=== PATIENT | female | born 1945 | race Two or more races ===

== ENCOUNTER 2018-11-13 12:53 | Inpatient (IN) | payer BC, MEDICARE ==
[2018-11-13] MEDS ORDERED: oxyCODONE/Acetamin 5/325 MG* TAB PO ONE (13:11)
[2018-11-13] MEDS ORDERED: Diazepam SYRINGE* 5 MG/ML 2 ML SYRINGE (10 MG total) IV ONE ×2 (14:01→16:07)
[2018-11-13] MEDS ORDERED: Labetalol IV* 5 MG/ML 20 ML VIAL IV PUSH ONE (14:01)
[2018-11-13] MEDS ORDERED: Ketorolac INJ* 30 MG/ML 1 ML VIAL IV PUSH ONE (14:02)
[2018-11-13] MEDS ORDERED: Diazepam INJ (NF) 5 MG/ML 10 ML VIAL (50 MG TOTAL) IV ONE (15:00)
--- NOTE | 2018-11-13 17:15 | HP ---
H&P (Free Text) History and Physical: History and Physical Provider: Dr. 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 She states that she was at [employer] today ant 1130 and slipped and fell on her ankle. She states it was inverted. She was unable to stand and EMS had to carry her out. She states that her last meal was at 730 this am. She states that moving her ankle worsens the pain and that not moving it decreases the pain. She does not currently have any numbness but states that she does have deformity of her ankle. PMH: 1. HTN 2. Hypothyroidism 3. Herniated disc L2 - L3 MEDICATIONS: 1. Levothyroxin ALLERGIES: Allergies Allergy/AdvReac Type Severity Reaction Status Date / Time Sulfa (Sulfonamide Allergy Rash Verified 11/13/18 13:34 Antibiotics) PSH: 1. 2. Hysterectomy SOCIAL HISTORY: Pt denies any smoking or drinking. No illicit drug use. Admits to occasional drinking. ROS: * General: Denies fevers, chills or night sweats. No known anesthesia problems. * HEENT: denies YANES, lightheadedness or syncopal episodes * Cardiothoracic: Negative for chest pain, heart palpitations, or edema * Pulmonary: Negative for SOB with exertion, chronic cough, COPD or asthma * GI: denies N/V/D/C or GERD * : Negative for nocturia, urinary frequency, urinary urgency, history of UTI s or kidney problems * Musculoskeletal: negative for chronic or intermittent back pain or fractures * Neuro: Denies paresthesias, numbness, seizure, stroke, epilepsy, depression or anxiety * Integumentary: No abrasions, lesions, rashes, lumps or open sores * Endocrine: Negative for diabetes or thyroid issues * Hematology: negative for easy bruising, anemia, excessive bleeding, or DVT. PHYSICAL EXAM: * Vitals: * General: Alert & oriented, year old in no acute distress. Appropriate mood and affect * HEENT: Normocephalic, atraumatic, hearing and vision grossly intact * Cardio: regular rate and rhythm, S1 S2, no murmurs appreciated, no edema * Pulmonary: Lungs clear to auscultation bilaterally, no wheezes, rales or rhonchi * Musculoskeletal/Neurologic: Deformity of the left ankle is apparent. Moderate swelling and ecchymosis is present. There is TTP to light touch at this point. Skin does wrinkle somewhat. Imaging: Xrays of the left ankle were obtained and reviewed. Unstable trimalleolar fracture dislocation at the talocrural joint. Gómez type B 3 fracture pattern. IMPRESSION: Left ankle trimalleolar fracture PLAN: <Glynn Hillman - Last Filed: 11/13/18 17:16> History and Physical: Patient has a left ankle trimalleolar fracture dislocation. Patient presented to ED. Initially patient considered going to [facility] as she lives close to that hospital and knows doctors there. [facility]. ED staff tried 1 relocation/reduction. Unsuccessful. Patient decided to stay at [facility]. With a ankle block and IV Morphine, I attempted relocation and splinting. Post-reduction xrays showed persistent posterior dislocation. Given the patient's soft tissue swelling, I decided on external fixation rather than ORIF. I therefore her to the OR for a closed relocation and external fixation placement in the night of admission, on 11/13/18. <Hesham Hickey - Last Filed: 11/14/18 10:26>
--- NOTE | 2018-11-13 17:18 | ED ---
Lower Extremity - HPI Summary HPI Summary: 73-year-old female presents with left ankle injury today. States she was walking at [facility] and ended up rolling her ankle and felt a snap. She was unable to ambulate and it took ems an hour to find her. She denies any numbness or tingling. No previous fracture to the area. Has history of htn. States pain medication makes her high blood pressure very high. She is from [place]. - History of Current Complaint Chief Complaint: EDExtremityLower Stated Complaint: LT ANKLE INJ PER EMS Time Seen by Provider: 11/13/18 13:10 Pain Intensity: 6 - Allergies/Home Medications Allergies/Adverse Reactions: Allergies Allergy/AdvReac Type Severity Reaction Status Date / Time Sulfa (Sulfonamide Allergy Rash Verified 11/13/18 13:34 Antibiotics) Home Medications: Home Medications Amlodipine 2.5 mg tab 2.5 mg PO DAILY 11/13/18 [History Confirmed 11/13/18] Carvedilol TAB* [Coreg TAB*] 25 mg PO DAILY 11/13/18 [History Confirmed 11/13/18 ] Hydrochlorothiazide TAB* [Hydrodiuril TAB*] 50 mg PO DAILY 11/13/18 [History Confirmed 11/13/18] Levothyroxine TAB* 88 mcg PO DAILY 11/13/18 [History Confirmed 11/13/18] Losartan Potassium 100 mg PO DAILY 11/13/18 [History Confirmed 11/13/18] PMH/Surg Hx/FS Hx/Imm Hx Endocrine/Hematology History: Denies: Hx Anticoagulant Therapy Cardiovascular History: Reports: Hx Hypertension Infectious Disease History: No Infectious Disease History: Denies: Traveled Outside the [place] in Last 30 Days - Family History Known Family History: Positive: Non-Contributory - Social History Alcohol Use: None Substance Use Type: Reports: None Smoking Status (MU): Never Smoked Tobacco Review of Systems Negative: Fever Negative: Chest Pain Negative: Shortness Of Breath Positive: Myalgia - left ankle pain All Other Systems Reviewed And Are Negative: Yes Physical Exam Triage Information Reviewed: Yes Vital Signs On Initial Exam: Initial Vitals Temp Pulse Resp BP Pulse Ox 97 F 61 18 205/102 100 11/13/18 12:58 11/13/18 12:58 11/13/18 12:58 11/13/18 12:58 11/13/18 12:58 Vital Signs Reviewed: Yes Appearance: Positive: Well-Appearing Skin: Positive: Warm, Dry Head/Face: Positive: Normal Head/Face Inspection Eyes: Positive: Normal, Conjunctiva Clear ENT: Positive: Pharynx normal Respiratory/Lung Sounds: Positive: Clear to Auscultation, Breath Sounds Present Cardiovascular: Positive: Normal, RRR Musculoskeletal: Positive: Limited @ - left ankle, Other - deformity to left ankle, good pulses, capillary refill<2 secs Neurological: Positive: Normal Psychiatric: Positive: Normal Diagnostics - Vital Signs Vital Signs Temp Pulse Resp BP Pulse Ox 11/13/18 16:10 16 11/13/18 13:33 16 11/13/18 12:58 97 F 61 18 205/102 100 - Laboratory Result Diagrams: 11/14/18 06:14 11/14/18 06:14 Lab Statement: Any lab studies that have been ordered have been reviewed, and results considered in the medical decision making process. - Radiology ankle Radiology Interpretation Completed By: Radiologist Summary of Radiographic Findings: #. Oblique fracture through the distal metaphysis of the fibula terminating inferiorly at. the level of the ankle mortise with one half bone width lateral and posterior. displacement. Mildly comminuted horizontal avulsion fracture at the medial malleolus. Coronal oriented fracture at the posterior malleolus of the tibial plafond with. approximate 1 cm predominant cephalad displacement with resulting significant articular. surface incongruity. Re-Evaluation - Re-Evaluation First Eval Comment: attempted reduction thought ankle was reduced Second Eval Comment: discussed with patient and is unsure if wants treatment here or not. wants to potential go to [facility]. Third Eval Re-Evaluation Time: 18:04 Comment: patient states wants to stay for surgery Lower Extremity Course/Dx - Course Course Of Treatment: 73-year-old female presents with left ankle injury today. States she was walking at [facility] and ended up rolling her ankle and felt a snap. She was unable to ambulate and it took ems an hour to find her. She denies any numbness or tingling. No previous fracture to the area. Has history of htn. States pain medication makes her high blood pressure very high. She is from [place]. On exam has deformity noted to left ankle. Neurovascular intact. X-ray shows trimalleolar fracture. gave labatelol for blood pressure. Attempted reduction and felt the area pop but when performed x- rays area still not reduced. Consultation with Dr. Hickey. patient states wants to be admitted for surgery. - Diagnoses Differential Diagnosis/HQI/PQRI: Positive: Dislocation, Fracture (Closed), Sprain Provider Diagnoses: Trimalleolar fracture of left ankle, Hypertension Discharge - Sign-Out/Discharge Documenting (check all that apply): Patient Departure Patient Received Moderate/Deep Sedation with Procedure: No - Discharge Plan Condition: Stable Disposition: ADMITTED TO [facility] - Billing Disposition and Condition Condition: STABLE Disposition: Admitted to [facility]
[2018-11-13] MEDS ORDERED: Morphine 4 MG/ML VIAL (1 ml) 4 MG/ML VIAL IV ONE (19:48)
[2018-11-13] MEDS ORDERED: Ondansetron INJ* 2 MG/ML VIAL IV ONE (19:48)
[2018-11-13] MEDS ORDERED: Lidocaine 1% INJ* 10 MG/ML 30 ML SDV ONE (19:58)
[2018-11-13] MEDS ORDERED: Morphine 10 MG/ML VIAL (1 ml) ONE (20:15)
[2018-11-13] MEDS: Morphine 10 MG/ML VIAL (1 ml) IV ONE ×2 (20:24→20:35)
[2018-11-13] MEDS ORDERED: Bupivacaine 0.5%* 50 ML VIAL ONE (23:16)
[2018-11-13] MEDS ORDERED: ceFAZolin 2 GM in NS PREMIX(*) 2 GM/100 ML BAG IVPB ONE (23:25)
[2018-11-13] MEDS ORDERED: fentaNYL* 50 MCG/ML 2 ML VIAL (100 MCG VIAL) ONE (23:57)
[2018-11-14] MEDS ORDERED: Ondansetron INJ* 2 MG/ML VIAL ONE (00:15)
[2018-11-14] MEDS ORDERED: Propofol* 10 MG/ML 20 ML BTL ONE (00:15)
[2018-11-14] MEDS ORDERED: Lidocaine 2% PF * 5 ML VIAL ONE (00:15)
[2018-11-14] MEDS ORDERED: Dexamethasone IV* 4 MG/ML 1 ML (4 MG) ONE (00:15)
[2018-11-14] MEDS ORDERED: diPHENhydraMINE IV* 50 MG/ML 1 ml VIAL (BENADRYL) IV PRN (01:13)
[2018-11-14] MEDS ORDERED: Ondansetron INJ* 2 MG/ML VIAL IV PRN (01:13)
[2018-11-14] MEDS ORDERED: Magnesium Hydroxide LIQ* 30 ML UDC PO PRN (01:13)
[2018-11-14] MEDS ORDERED: Lactated Ringers 1000 ML Bag* 1,000 ML IV SCH (02:00)
[2018-11-14] MEDS ORDERED: Acetaminophen TAB* 325 MG ONE (02:37)
[2018-11-14] MEDS ORDERED: Morphine INJ* 2 MG/ML 1 ML SYRINGE (TWO MG - NEW SYRINGE VERSION) ONE (02:37)
[2018-11-14] MEDS: Morphine INJ* 2 MG/ML 1 ML SYRINGE (TWO MG - NEW SYRINGE VERSION) IV PRN ×2 (02:39→21:31)
[2018-11-14] MEDS: Acetaminophen TAB* 325 MG PO SCH ×3 (02:39→18:10)
[2018-11-14] MEDS: Levothyroxine TAB* 88 MCG TAB PO SCH (06:12)
[2018-11-14 06:23] LABS: Hematocrit 32 % (35-47); Hemoglobin 11.2 g/dL (12.0-16.0)
[2018-11-14 06:24] LABS: Mean Platelet Volume 8.7 fL (7.4-10.4); Platelet Count 224 10^3/uL (150-450)
[2018-11-14 06:51] LABS: EGFR Non-African American 101.6 (>60)
[2018-11-14] MEDS: Losartan TAB* 25 MG PO SCH (08:17)
[2018-11-14] MEDS: Carvedilol TAB* 25 MG PO SCH (08:19)
[2018-11-14] MEDS: ceFAZolin 1 GM ADVAN(*) 1 GM in NS 0.9% 50 ML* 50 ML IVPB SCH ×3 (08:19→23:30)
[2018-11-14] MEDS: Magnesium Hydroxide LIQ* 30 ML UDC PO SCH ×2 (08:32→20:06)
[2018-11-14] MEDS: Docusate CAP* 100 MG PO SCH ×2 (08:32→20:06)
[2018-11-14] MEDS ORDERED: Hydrochlorothiazide TAB* 50 MG PO SCH (09:00)
[2018-11-14] MEDS ORDERED: amLODIPine TAB* 5 MG PO SCH (09:00)
[2018-11-14] MEDS: Enoxaparin(*) 40 MG/0.4 ML SYR SUBCUT SCH (10:10)
[2018-11-14] MEDS: Hydrochlorothiazide TAB* 25 MG PO SCH (10:11)
--- NOTE | 2018-11-14 10:32 | PN ---
Progress Note - Progress Note Date of Service: 11/14/18 SOAP: Subjective: Surgery went well last night. Objective: LLE: - external fixator in place - minimal bloody spotting on dressing - NVID Selected Entries 11/14/18 08:30 Temperature 97.8 F Pulse Rate 68 Respiratory 16 Rate Blood Pressure 138/57 (mmHg) O2 Sat by Pulse 97 Oximetry Assessment: POD 1 external fixator placement and ankle relocation for a left ankle trimalleolar fracture dislocation Plan: - Elevation on multiple pillows left lower extremity - Ice to the left ankle at all times or to tolerance - Lovenox 40mg SC daily - Non weight bearing left lower extremity - Pain control with PO and IV meds - Occupational therapy consult - Plan is for repeat surgery for removal of external fixator and open reduction internal fixation (ORIF) when the patient's soft tissue swelling reduces. It is hard to predict timing. That could be anywhere from 3-12 days from now. Friday, November 18 is a possibility if the swelling reduces quickly. - Dispo planning in case the patient goes home prior to surgery.
[2018-11-14] MEDS: amLODIPine TAB* 5 MG PO SCH (12:12)
[2018-11-14] MEDS: oxyCODONE/Acetamin 5/325 MG* TAB PO PRN (15:28)
[2018-11-15] MEDS: Acetaminophen TAB* 325 MG PO SCH ×3 (01:55→17:56)
[2018-11-15] MEDS: oxyCODONE/Acetamin 5/325 MG* TAB PO PRN ×4 (02:57→20:50)
[2018-11-15] MEDS: Levothyroxine TAB* 88 MCG TAB PO SCH (05:57)
[2018-11-15 06:11] LABS: Hematocrit 29 % (35-47); Hemoglobin 10.1 g/dL (12.0-16.0)
--- NOTE | 2018-11-15 07:18 | PN ---
Progress Note - Progress Note Date of Service: 11/13/18 Note: Patient signed out to me by Sandor PRATER pending decision by patient whether to be transferred to [place] or remain here to have surgery for trimalleolar fracture. Patient opted to have surgery here at [facility]. Dr. Thomas evaluated patient and attempted reduction of ankle unsuccessfully. Patient admitted to surgery in stable condition.
[2018-11-15] MEDS: Losartan TAB* 25 MG PO SCH (09:21)
[2018-11-15] MEDS: Carvedilol TAB* 25 MG PO SCH ×2 (09:23→20:49)
[2018-11-15] MEDS: Docusate CAP* 100 MG PO SCH ×2 (09:23→20:49)
[2018-11-15] MEDS: Magnesium Hydroxide LIQ* 30 ML UDC PO SCH ×2 (09:24→20:51)
[2018-11-15] MEDS: Hydrochlorothiazide TAB* 25 MG PO SCH (09:26)
[2018-11-15] MEDS: Enoxaparin(*) 40 MG/0.4 ML SYR SUBCUT SCH (09:28)
--- NOTE | 2018-11-15 10:10 | PN ---
Progress Note - Progress Note Date of Service: 11/15/18 SOAP: Subjective: Pt seen working with PT ambulating with a walker. States she had 8/10 pain last night, but pain is now well controlled with pain medications. Denies CP,SOB, F/ C. Vital Signs: Temp Pulse Resp BP Pulse Ox 97.8 F 61 16 156/68 100 11/15/18 07:25 11/15/18 07:25 11/15/18 09:24 11/15/18 07:25 11/15/18 07:25 Laboratory Last Values Hgb 10.1 g/dL (12.0-16.0) L 11/15/18 06:03 Hct 29 % (35-47) L 11/15/18 06:03 Plt Count 224 10^3/uL (150-450) 11/14/18 06:14 MPV 8.7 fL (7.4-10.4) 11/14/18 06:14 Creatinine 0.58 mg/dL (0.51-0.95) 11/14/18 06:14 Est GFR ( Amer) 123.0 (>60) 11/14/18 06:14 Est GFR (Non-Af Amer) 101.6 (>60) 11/14/18 06:14 Objective: A&Ox3, NAD, Calves, soft and nontender, Swelling and mild edema noted, Ex-fix intact. Assessment: 73 yo female s/p left ankle ex-fix placement for trimalleolar fracture/ dislocation POD #2 Plan: PT/OT NWB LLE DVT prophylaxis - Lovenox Pain control Ice and elevation LLE Plan is for eventual removal of external fixator and ORIF left ankle when swelling goes down. D/C planning
[2018-11-15] MEDS: amLODIPine TAB* 5 MG PO SCH (12:15)
[2018-11-16] MEDS: Acetaminophen TAB* 325 MG PO SCH ×5 (02:37→18:07)
--- NOTE | 2018-11-16 03:50 | OP ---
DATE OF SURGERY: 11/13/18 - ROOM #333 DATE OF : 43 SURGEON: Hesham Hickey MD CARDING MACHINE FEEDER: MOI Roblero. A physician funeral director's assistant was required for the length of the procedure for assistance with positioning, instrumentation, manipulation , and closure. ANESTHESIOLOGIST: Aviva Falk MD ANESTHESIA: General anesthesia. PRE-OP DIAGNOSIS: Left ankle trimalleolar fracture dislocation with posterior dislocation of ankle. POST-OP DIAGNOSIS: Left ankle trimalleolar fracture dislocation with posterior dislocation of ankle. OPERATIVE PROCEDURE: 1. Closed treatment of left ankle dislocation using general anesthesia, using external fixation. 2. External fixation, left ankle trimalleolar fracture dislocation. ANTIBIOTICS: Ancef 2 g IV. IV FLUIDS: See anesthesia note. [id number] TIME: 30 minutes. RADIATION EXPOSURE: Large C-arm utilized. FLUOROSCOPY TIME: 13.9 seconds for an exposure of 0.20306. SPECIMEN: None. IMPLANTS: Synthes external fixator set with 2 pins in the mid tibia shaft and 1 pin in the calcaneus. COMPLICATIONS: None. ESTIMATED BLOOD LOSS: Minimal. 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 while hiking at the [employer] locally. The patient fell and twisted her ankle. The patient is aware that it was broken. She could not weight bear. Some sort of rescue group, either EMS or [employer] employees were able to carry her out of the park. The patient was then brought by ambulance to [facility]. I saw the patient in the emergency department. At first, the patient was not sure she would stay for her care to be provided at [facility]. She considered going to [facility] as it is closer to [place] and she knew of some orthopedic surgeons there. I returned to the emergency department several times between cases during the day on Friday. Before I had seen the patient, a physician funeral director's assistant in the emergency department had attempted reduction and had then splinted the ankle. X-rays before and after the reduction showed that there was no significant improvement in reduction. I ordered a CT scan to be obtained and then I returned to see the patient. Later in the evening, the patient decided she would stay at [facility] to have her care obtained. I noted the trimalleolar fracture by x-ray and CT scan with a large posterior malleolar fragment. I spoke to the patient that she would ultimately need an external fixator and/ or open reduction internal fixation at some point in the operating room. We decided to attempt a closed relocation in the emergency room using an ankle block anesthesia and some IV pain medications. I obtained a written consent from the patient after discussing risks and potential complications of procedure. The patient was given morphine 10 mg in two 5 mg doses. I then injected approximately 10 cc of lidocaine 1% into the patient's ankle, sterile technique, tolerated it well. I waited 5 minutes and then manipulated the patient's ankle. It seemed as though I had reduced it. I placed a plaster splint, short leg, posterior and sugar-tong. I then wrapped it with an Yeyo bandage. The patient then had x-rays obtained, which showed no improvement on the lateral view. In fact, it might have been dislocated slightly more. The tibial plateau was entirely dislocated anteriorly with the exception of the posterior malleolus fracture fragment, which stayed aligned with the talar dome. The fracture was, however, slightly better aligned in the coronal plane. It should be noted that the patient, according to emergency room staff, had at first refused all pain medication because she was worried about it causing hypertension. She then described being in significant pain and wanted pain medication. After this failed closed treatment, reduction relocation in the emergency room, we decided the patient needed to be taken to surgery that night. She would have done much damage to her ankle remaining dislocated overnight. Because of the patient's soft tissue swelling and in fact some fracture blisters present medially, I decided external fixator placement would be better than open reduction internal fixation. I spoke at length with the patient as well as some family members about how the external fixation was not definitive treatment and that the patient would require open reduction internal fixation when her soft tissue swelling decreases. DESCRIPTION OF PROCEDURE: In preoperative holding, the patient signed a written consent. Operative extremity was marked in preoperative holding. The patient was taken back to the operating room and placed supine on operating room table. Sedated and intubated. Prepped and draped. Surgical time-out performed. I placed a stab hole, proximal to any area of future surgical incisions just medial to the tibial crest. I drilled bicortically and then placed pin on power. I then placed my second pin after predrilling. Used a large C-arm and adjusted the advancement of the pins so that they were just bicortical. These had solid hold. Moved down to the calcaneus. I placed a calcaneal pin from medial to lateral well away from neurovascular structures, but in solid bone with large amount of bone in every direction. I assembled external fixator components. Tightened. Pulled traction and performed relocation maneuver. Tightened. X-rays confirmed excellent relocation of ankle joint in all planes of view. Tightened everything once again. Placed several cubic centimeters of local anesthetic, approximately 5 cc about the stab incisions. Wrapped wounds with Xeroform followed by 4x4's followed by Kerlix followed by Yeyo bandage. The patient was awakened, extubated, and transferred to the PACU. The patient was readmitted to my service postoperatively. She was to receive Lovenox 40 mg subcu daily starting on postoperative day 1 for DVT prophylaxis. Ancef 1 g IV x24 hours postoperatively for infection prophylaxis. The patient will be nonweightbearing left lower extremity. She will need to elevate on at least 3 pillows the left lower leg and apply an ice bag to the left ankle at all times. I spoke to the patient about how definitive treatment would be removal of external fixator and placement of open reduction internal fixation plates for all three malleoli, somewhere between 4 to 10 days from now, whenever soft tissue swelling and skin tension improves. I will also write an order for appropriate pin site care. [id number]/[facility] #: [id number] [facility]
[2018-11-16] MEDS: Levothyroxine TAB* 88 MCG TAB PO SCH (06:04)
[2018-11-16 06:46] LABS: Hematocrit 31 % (35-47); Hemoglobin 10.9 g/dL (12.0-16.0)
[2018-11-16] MEDS: Magnesium Hydroxide LIQ* 30 ML UDC PO SCH ×2 (07:55→20:28)
[2018-11-16] MEDS: Enoxaparin(*) 40 MG/0.4 ML SYR SUBCUT SCH (08:03)
[2018-11-16] MEDS: Hydrochlorothiazide TAB* 25 MG PO SCH (08:05)
[2018-11-16] MEDS: Losartan TAB* 25 MG PO SCH (08:05)
[2018-11-16] MEDS: Carvedilol TAB* 25 MG PO SCH ×2 (08:05→20:28)
[2018-11-16] MEDS: Docusate CAP* 100 MG PO SCH ×2 (08:05→20:28)
--- NOTE | 2018-11-16 10:32 | PN ---
Progress Note - Progress Note Date of Service: 11/16/18 SOAP: Subjective: []Pt seen at bedside. She is feeling well her left ankle pain is well controlled at rest. Denies CP, SOB, dizziness, nausea. Objective: []Gen: Sitting comfortably in a chair LLE: Left ankle dressing CDI, still no skin wrinkling. Able to flex and extend MTPs without pain. Capillary refill less than two seconds distally. Calves supple and nontender Assessment: []POD 3 sp ex-fix trimall fx dislocation left ankle Plan: []NWB LLE Elevate on 3-4 pillows and Ice- patient confirms she has been elevating and icing. Follow swelling, if significantly reduced will have ORIF 11/18. If not will likely DC before next stage of procedure. Per patient if she is discharged from this facility she will have the remainder of treatment at location closer to her home, [place]. At home she lives with her who is not medically well and will be able to provide limited assistance to her. Will need to consider rehab at [facility] with nursing to start today Vital Signs Temp 97.5 F 11/16/18 07:14 Pulse 57 11/16/18 07:14 Resp 16 11/16/18 08:00 BP 135/59 11/16/18 07:14 Pulse Ox 98 11/16/18 07:14 Intake & Output 11/15/18 11/16/18 11/16/18 18:59 06:59 18:59 Intake Total 460 500 300 Output Total 1950 0 Balance -1490 500 300 Intake: Oral 460 500 300 Output: Urine 1950 0 Other: Estimated Void Large Medium Date of Last Bowel 11/16/18 Movement # Bowel Movements 1 Estimated Stool Amount Large Small # Voids 1 1 Laboratory Last Values Hgb 10.9 g/dL (12.0-16.0) L 11/16/18 06:07 Hct 31 % (35-47) L 11/16/18 06:07 Plt Count 224 10^3/uL (150-450) 11/14/18 06:14 MPV 8.7 fL (7.4-10.4) 11/14/18 06:14 Creatinine 0.58 mg/dL (0.51-0.95) 11/14/18 06:14 Est GFR ( Amer) 123.0 (>60) 11/14/18 06:14 Est GFR (Non-Af Amer) 101.6 (>60) 11/14/18 06:14 <Pricilla Francis - Last Filed: 11/16/18 10:26> - Progress Note SOAP: Subjective: Pain much reduced. Objective: LLE: - the start of some wrinkling about ankle - blister about medial ankle; I atraumatically drained it - swelling about ankle but reduced Assessment: As above Plan: - Elevation on 4 pillows - Ice at all times - I will add 2 days of Keflex to dry out that medial blister - DSD on ankle then dressing - Pin site care - Patient doesn't believe she can return home. So she will have surgery Saturday 11/18, or if ankle is too swollen still, which is very likely, she will look for a rehab disposition until surgery next week at [facility] or at [facility] closer to home <Hesham Hickey - Last Filed: 11/16/18 23:07>
[2018-11-16] MEDS: amLODIPine TAB* 5 MG PO SCH (11:56)
[2018-11-16] MEDS: oxyCODONE/Acetamin 5/325 MG* TAB PO PRN (22:14)
[2018-11-17] MEDS: Cephalexin CAP* 500 MG PO SCH ×5 (00:14→20:10)
[2018-11-17] MEDS: Levothyroxine TAB* 88 MCG TAB PO SCH (05:23)
[2018-11-17] MEDS: Acetaminophen TAB* 325 MG PO SCH ×4 (05:23→18:48)
[2018-11-17 05:46] LABS: Hematocrit 34 % (35-47); Hemoglobin 11.8 g/dL (12.0-16.0)
[2018-11-17] MEDS: Hydrochlorothiazide TAB* 25 MG PO SCH (09:09)
[2018-11-17] MEDS: Losartan TAB* 25 MG PO SCH (09:10)
[2018-11-17] MEDS: Enoxaparin(*) 40 MG/0.4 ML SYR SUBCUT SCH (09:11)
[2018-11-17] MEDS: Carvedilol TAB* 25 MG PO SCH ×2 (09:15→20:10)
[2018-11-17] MEDS: Magnesium Hydroxide LIQ* 30 ML UDC PO SCH ×2 (09:58→20:13)
[2018-11-17] MEDS: Docusate CAP* 100 MG PO SCH ×2 (09:58→20:12)
[2018-11-17] MEDS: amLODIPine TAB* 5 MG PO SCH (12:03)
--- NOTE | 2018-11-17 16:58 | PN ---
Progress Note - Progress Note Date of Service: 11/17/18 SOAP: Subjective: POD #3 Left ankle closed reduction, external fixator application. States that she is feeling better. Has been elevating frequently. Denies paresthesias or numbness. Objective: Vitals: Temp Pulse Resp BP Pulse Ox 97.9 F 75 16 136/64 99 11/17/18 15:00 11/17/18 15:00 11/17/18 15:00 11/17/18 15:00 11/17/18 15:00 Gen: A&Ox3, NAD at rest sitting in chair LLE: Pin sites C/D/I. Moderate edema but seems to be improving, slight wrinkling of skin present. New fx blister to medial ankle measuring approx 1.5 cm round. +f/e at MTPs, N/V intact Labs: Laboratory Results - last 24 hr 11/17/18 05:23 Hgb 11.8 L Hct 34 L Assessment: POD #3 Left ankle closed reduction, external fixator application Plan: NWB LLE Possible OR tomorrow for ORIF of ankle depending on improvement of swelling Cont Lovenox for DVT ppx
[2018-11-17] MEDS ORDERED: amLODIPine TAB* 5 MG PO SCH (19:20)
[2018-11-17] MEDS ORDERED: amLODIPine TAB* 5 MG PO ONE (19:27)
--- NOTE | 2018-11-17 20:26 | CONS ---
CONSULTATION REPORT: DATE OF CONSULT: 11/17/18 REQUESTING PROVIDER: Dr. Hickey. REASON FOR CONSULT: Co-management of chronic medical conditions. 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 She was found to have a trimalleolar left ankle fracture and had external fixation on 11/14/18, now she is ready for removal of the external fixator and will have ORIF. [facility] Medicine was asked to evaluate the patient in consultation for co-management of chronic medical conditions. The patient reports that she does not have chest pain or shortness of breath on walking at least [address] Denies fever, chills, abdominal pain, nausea, and vomiting. She feels her pain is well controlled and has no dizziness or lightheadedness. PAST MEDICAL HISTORY: 1. Hypertension. 2. Hypothyroidism. 3. Herniated disk, L2-L3. PAST SURGICAL HISTORY: 1. . 2. Hysterectomy. 3. External fixation of left ankle trimalleolar fracture dislocation on . HOME MEDICATIONS: 1. Carvedilol 25 mg p.o. daily. 2. Hydrochlorothiazide 50 mg p.o. daily. 3. Losartan 100 mg p.o. daily. 4. Amlodipine 2.5 mg p.o. daily. 5. Levothyroxine 88 mcg p.o. daily. ALLERGIES: SULFA MEDICATIONS. FAMILY HISTORY: Mother in her 80s due to congestive heart failure. Father in his 40s due to unknown reason, suspected cardiac cause. Sister in her 50s due to possible cardiac cause. Other sister in her 80s due to CHF. Brother passed of an PR at 65. All of her siblings and her parents also had hypertension. 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 She lives with her in [place] and has a daughter. She denies alcohol use, drug use, and tobacco use. REVIEW OF SYSTEMS: An 11-point review of systems was completed and all pertinent positives and negatives are above in the HPI. All other systems are negative. PHYSICAL EXAM: General: An Lao elderly female, well developed, well nourished, appearing in no acute distress. Head: Normocephalic, atraumatic. Eyes: PERRL. Sclerae anicteric. ENT: Mucous membranes moist. Neck: Supple without JVD. Lungs: Clear to auscultation throughout. Cardio: Regular rate and rhythm without murmurs, rubs, or gallops. Abdomen: Abdomen is soft, nontender, nondistended. Extremities: Left lower extremity with external fixation. Sensation to light touch intact to the left toes. Able to flex and extend the left-sided toes. No edema, clubbing, or cyanosis to all extremities. Neuro: The patient is alert and oriented x3. No focal deficits. PERTINENT LABORATORY DATA: H and H today, hemoglobin 11.8, hematocrit 34. ASSESSMENT AND PLAN: Holland is a 73-year-old female with past medical history significant for hypertension, hypothyroidism and herniated disk, who is in the hospital for trimalleolar fracture and is status post external fixation of ankle fracture. Hospital Medicine has been consulted for co-management of chronic conditions. 1. Hypertension. The patient is on 4 medications for her hypertension and she does still have hypertension at times with systolic to 170s. I will increase her amlodipine to 5 mg p.o. daily and give her a dose of 2.5 mg today for better control of her hypertension. Additionally, I placed holding parameters on all her antihypertensives to hold for systolic blood pressure less than 110 and she mentions that she has never had further workup of her hypertension outpatient. It may be of benefit given needing 4 antihypertensives to have some outpatient workup to rule out renal artery stenosis; however, she does have extensive family history of hypertension. Continue all of her medications. 2. Hypothyroidism. Continue home Synthroid. 3. Status post external fixation of left ankle trimalleolar fracture. Plan for further surgery tomorrow to remove the external fixator and to perform ORIF. The patient has never had an EKG in this facility and I have ordered one now to evaluate her baseline cardiac status. Additionally, I have ordered a BMP to evaluate her kidney function. At this point, her RCRI risk is 0; however , this is not a completed score given that I do not have data for creatinine and we will follow up on this when BMP is resulted in the morning. Given current data, the patient has NSQIP surgical risk calculator of 0% cardiac complication due to surgery, which is below average and 1.8% risk of serious complication, which is additionally below average. Further management per Orthopedic Surgery team. 4. Disposition: Per Orthopedic Surgery team. Thank you for allowing us to participate in the care of this patient. We will follow during this admission. MOI HAMPTON [id number]/[facility] #: [id number] TOMMIE
[2018-11-17] MEDS: oxyCODONE/Acetamin 5/325 MG* TAB PO PRN (23:57)
[2018-11-18] MEDS: Acetaminophen TAB* 325 MG PO SCH ×2 (02:58→11:56)
[2018-11-18 05:21] LABS: Hematocrit 36 % (35-47); Hemoglobin 12.2 g/dL (12.0-16.0)
[2018-11-18 05:33] LABS: BUN/Creatinine Ratio 20.5 (8-20); Calcium 9.5 mg/dL (8.6-10.3); EGFR Non-African American 62.8 (>60); Potassium 4.1 mmol/L (3.5-5.0)
[2018-11-18] MEDS: Levothyroxine TAB* 88 MCG TAB PO SCH (05:47)
[2018-11-18] MEDS ORDERED: NS 0.9% 1000 ML** 1,000 ML IV SCH (07:30)
[2018-11-18] MEDS ORDERED: Buffered Lidocaine 1% SYRIN* 1 ML/SYRINGE INTRADERM ONE ×2 (09:49→12:34)
[2018-11-18] MEDS ORDERED: Dexamethasone TAB* 4 MG PO ONE (09:49)
[2018-11-18] MEDS ORDERED: Famotidine IV* 10 MG/ML 2 ML (20 mg) IV ONE (09:49)
[2018-11-18] MEDS ORDERED: Ondansetron ODT TAB* 4 MG PO ONE (09:49)
[2018-11-18] MEDS: Cephalexin CAP* 500 MG PO SCH ×2 (11:05→13:43)
[2018-11-18] MEDS: Losartan TAB* 25 MG PO SCH (11:05)
[2018-11-18] MEDS: Carvedilol TAB* 25 MG PO SCH (11:06)
[2018-11-18] MEDS: Hydrochlorothiazide TAB* 25 MG PO SCH (11:07)
[2018-11-18] MEDS: Docusate CAP* 100 MG PO SCH (11:56)
[2018-11-18] MEDS: Magnesium Hydroxide LIQ* 30 ML UDC PO SCH (11:56)
[2018-11-18] MEDS ORDERED: Bupivacaine 0.5% W/EPI SDV* 30 ML VIAL ONE (12:59)
[2018-11-18] MEDS ORDERED: fentaNYL* 50 MCG/ML 2 ML VIAL (100 MCG VIAL) ONE ×3 (13:06→19:46)
[2018-11-18] MEDS ORDERED: KETAMINE HCL* 50 MG/ML 10 ML VIAL ONE (13:06)
[2018-11-18] MEDS ORDERED: Midazolam* 1 MG/ML 2 ML VIAL (2 MG) ONE (13:07)
[2018-11-18] MEDS: amLODIPine TAB* 5 MG PO SCH (13:16)
[2018-11-18] MEDS ORDERED: ceFAZolin 2 GM in NS PREMIX(*) 2 GM/100 ML BAG IVPB ONE ×2 (13:59→19:12)
--- NOTE | 2018-11-18 15:56 | PN ---
Subjective Date of Service: 11/18/18 Interval History: Patient feels well this AM. Denies abd pain, nausea, vomiting, chest pain, difficulty breathing, dizziness, headaches, fever/chills. Feels her leg pain is well controlled. Objective Active Medications: Acetaminophen (Tylenol Tab*) 975 mg PO Q8H [facility] Last Admin: 11/18/18 11:56 Dose: Not Given Amlodipine Besylate (Norvasc Tab*) 5 mg PO DAILY@1200 [facility] Last Admin: 11/18/18 13:16 Dose: Not Given Carvedilol (Coreg Tab*) 25 mg PO BID [facility] Last Admin: 11/18/18 11:06 Dose: 25 mg Cephalexin HCl (Keflex Cap*) 500 mg PO QID [facility] Stop: 11/18/18 17:01 Last Admin: 11/18/18 13:43 Dose: 500 mg Diphenhydramine HCl (Benadryl Iv*) 25 mg IV Q6H PRN PRN Reason: itching Docusate Sodium (Colace Cap*) 100 mg PO BID [facility] Last Admin: 11/18/18 11:56 Dose: Not Given Hydrochlorothiazide (Hydrodiuril Tab*) 12.5 mg PO DAILY [facility] Last Admin: 11/18/18 11:07 Dose: 12.5 mg Sodium Chloride (Ns 0.9% 1000 Ml) 1,000 mls @ 75 mls/hr IV PER RATE [facility] Last Admin: 11/18/18 11:13 Dose: 75 mls/hr Lactated Ringer's (Lactated Ringers 1000 Ml Bag*) 1,000 mls @ 125 mls/hr IV PER RATE [facility] Levothyroxine Sodium (Synthroid Tab*) 88 mcg PO DAILY@0600 [facility] Last Admin: 11/18/18 05:47 Dose: 88 mcg Losartan Potassium (Cozaar Tab*) 100 mg PO DAILY [facility] Last Admin: 11/18/18 11:05 Dose: 100 mg Magnesium Hydroxide (Milk Of Magnesia Liq*) 30 ml PO BID [facility] Last Admin: 11/18/18 11:56 Dose: Not Given Magnesium Hydroxide (Milk Of Magnesia Liq*) 30 ml PO Q6H PRN PRN Reason: constipation Morphine Sulfate (Morphine Inj (Syringe))*) 2 mg IV Q2H PRN PRN Reason: PAIN Last Admin: 11/14/18 21:31 Dose: 2 mg Ondansetron HCl (Zofran Inj*) 4 mg IV Q6H PRN PRN Reason: nausea Oxycodone/Acetaminophen (Percocet 5/325 Tab*) 1 tab PO Q4H PRN PRN Reason: PAIN Last Admin: 11/17/18 23:57 Dose: 1 tab Oxycodone/Acetaminophen (Percocet 5/325 Tab*) 2 tab PO Q4H PRN PRN Reason: PAIN Last Admin: 11/15/18 20:50 Dose: 2 tab Vital Signs - 8 hr 11/18/18 11/18/18 11:32 13:06 Temperature 98.1 F Pulse Rate 69 Respiratory 18 Rate Blood Pressure 129/57 101/56 (mmHg) O2 Sat by Pulse 98 Oximetry Oxygen Devices in Use Now: None Appearance: Thin, elderly woman laying in hospital bed appearing in NAD Eyes: No Scleral Icterus, PERRLA Ears/Nose/Mouth/Throat: Mucous Membranes Moist Neck: NL Appearance and Movements; NL JVP Respiratory: Symmetrical Chest Expansion and Respiratory Effort, Clear to Auscultation Cardiovascular: NL Sounds; No Murmurs; No JVD, RRR Abdominal: - - abd soft, nontender, nondistended Extremities: No Edema, No Clubbing, Cyanosis, - - left leg elevated, with external fixation Skin: No Rash or Ulcers Neurological: Alert and Oriented x 3, NL Muscle Strength and Tone, - - sensation to light touch intact in left foot Result Diagrams: 11/18/18 05:04 11/18/18 05:04 Assess/Plan/Problems-Billing Assessment: 73 yo female with PMHx hypertension and hypothyroidism presents via EMS after a fall while hiking, found to have left trimalleolar fracture. Since 11/14/18, is s /p external fixation and hospital medicine is consulted for comanagement of chronic medical conditions. - Patient Problems (1) Hypertension Current Visit: Yes Status: Acute Code(s): I10 - ESSENTIAL (PRIMARY) HYPERTENSION SNOMED Code(s): 51690965 Comment: -EKG obtained yesterday without evidence of ischemia, NSR -BP normotensive today -continue amlodipine (at increased dose to 5mg), carvedilol, losartan, and HCTZ with holding parameters for SBP<110 (2) Hypothyroidism Current Visit: Yes Status: Acute Code(s): E03.9 - HYPOTHYROIDISM, UNSPECIFIED SNOMED Code(s): 20913803 Comment: -cont synthroid (3) Left trimalleolar fracture Current Visit: Yes Status: Acute Code(s): S82.852A - DISPLACED TRIMALLEOLAR FRACTURE OF LEFT LOWER LEG, INIT SNOMED Code(s): 546314203 Comment: -s/p external fixation on 11/14/18. Scheduled today for removal of external fixators and ORIF -pain well controlled, continue pain mgmt and bowel regimen -mgmt per ortho surg -regarding RCRI risk follow up, score=0 with normal creatinine, indicating 3.9% 30-day risk of TN, , or cardiac arrest (4) Full code status Current Visit: Yes Status: Acute Code(s): Z78.9 - OTHER SPECIFIED HEALTH STATUS SNOMED Code(s): 687683633 (5) DVT prophylaxis Current Visit: Yes Status: Acute Code(s): Z29.9 - ENCOUNTER FOR PROPHYLACTIC MEASURES, UNSPECIFIED SNOMED Code(s): 870434293 Comment: -held today for orthopedic surgery as scheduled, resumption per orthopedic surgery
[2018-11-18] MEDS ORDERED: Morphine 10 MG/ML VIAL (1 ml) ONE (17:06)
[2018-11-18] MEDS ORDERED: Lidocaine 2% PF * 5 ML VIAL ONE (17:30)
[2018-11-18] MEDS ORDERED: Acetaminophen IV 1GM/100ML * 100 ML ONE (17:30)
[2018-11-18] MEDS ORDERED: Phenylephrine 10 MG/ML VIAL* 1 ML VIAL ONE (17:30)
[2018-11-18] MEDS ORDERED: Ketorolac INJ* 30 MG/ML 1 ML VIAL ONE (17:31)
[2018-11-18] MEDS ORDERED: Glycopyrrolate IV* 0.2 MG/ML 1 ML VIAL ONE (17:31)
[2018-11-18] MEDS ORDERED: Propofol* 10 MG/ML 20 ML BTL ONE (17:31)
[2018-11-18] MEDS ORDERED: Neostigmine Methylsulfate* 1 MG/ML 10 ML VIAL (1 mg/ml) ONE (17:31)
[2018-11-18] MEDS ORDERED: ceFAZolin 2 GM PREMIX in ORs 2 GM/50 ML BAG IVPB ONE (19:12)
[2018-11-18] MEDS ORDERED: ceFAZolin VIAL(*) VIAL ONE (19:13)
[2018-11-18] MEDS ORDERED: Morphine 4 MG/ML VIAL (1 ml) 4 MG/ML VIAL IV PRN (19:19)
[2018-11-18] MEDS ORDERED: Naloxone* 0.4 MG/ML 1 ML VIAL IV PRN (19:19)
[2018-11-18] MEDS ORDERED: PROCHLORPERAZINE INJ 5 MG/ML 2 ML VIAL IV PRN (19:19)
[2018-11-18] MEDS ORDERED: DiMENhydriNATE IV* 50 MG/ML VIAL IV PUSH PRN (19:19)
[2018-11-18] MEDS ORDERED: ceFAZolin 2 GM in NS 100 ml - ONCE (Pharmacy Admix) IVPB ONE (19:30)
[2018-11-18] MEDS ORDERED: oxyCODONE TAB* 5 MG TAB ONE ×2 (19:46→20:49)
[2018-11-18] MEDS: oxyCODONE TAB* 5 MG TAB PO PRN ×2 (19:48→20:50)
[2018-11-18] MEDS: fentaNYL* 50 MCG/ML 2 ML VIAL (100 MCG VIAL) IV PRN ×2 (19:48→19:55)
[2018-11-18] MEDS: Lactated Ringers 1000 ML Bag* 1,000 ML IV SCH (21:46)
[2018-11-18] MEDS: Morphine INJ* 2 MG/ML 1 ML SYRINGE (TWO MG - NEW SYRINGE VERSION) IV PRN (22:50)
[2018-11-19] MEDS: Cephalexin CAP* 500 MG PO SCH
[2018-11-19] MEDS: Acetaminophen TAB* 325 MG PO SCH ×5 (03:13→19:03)
[2018-11-19] MEDS: ceFAZolin 1 GM* X 3 DOSES POST-OP Q8H (AddVan) IVPB SCH ×6 (04:50→20:11)
[2018-11-19 04:54] LABS: Hematocrit 30 % (35-47); Hemoglobin 10.4 g/dL (12.0-16.0)
[2018-11-19] MEDS: Levothyroxine TAB* 88 MCG TAB PO SCH (05:44)
[2018-11-19] MEDS: Lactated Ringers 1000 ML Bag* 1,000 ML IV SCH (06:25)
--- NOTE | 2018-11-19 08:55 | PN ---
Progress Note - Progress Note Date of Service: 11/19/18 SOAP: Subjective: resting comfortably with LLE on multiple pillows, pain well controlled, denies SOB/CP Objective: Vital Signs Temp Pulse Resp BP Pulse Ox 97.6 F 64 16 118/48 100 11/19/18 08:18 11/19/18 08:18 11/19/18 08:18 11/19/18 08:18 11/19/18 08:18 Laboratory Last Values Hgb 10.4 g/dL (12.0-16.0) L 11/19/18 04:48 Hct 30 % (35-47) L 11/19/18 04:48 Plt Count 224 10^3/uL (150-450) 11/14/18 06:14 MPV 8.7 fL (7.4-10.4) 11/14/18 06:14 Sodium 137 mmol/L (135-145) 11/18/18 05:04 Potassium 4.1 mmol/L (3.5-5.0) 11/18/18 05:04 Chloride 101 mmol/L (101-111) 11/18/18 05:04 Carbon Dioxide 30 mmol/L (22-32) 11/18/18 05:04 Anion Gap 6 mmol/L (2-11) 11/18/18 05:04 BUN 18 mg/dL (6-24) 11/18/18 05:04 Creatinine 0.88 mg/dL (0.51-0.95) 11/18/18 05:04 Est GFR ( Amer) 76.0 (>60) 11/18/18 05:04 Est GFR (Non-Af Amer) 62.8 (>60) 11/18/18 05:04 BUN/Creatinine Ratio 20.5 (8-20) H 11/18/18 05:04 Glucose 105 mg/dL (70-100) H 11/18/18 05:04 Calcium 9.5 mg/dL (8.6-10.3) 11/18/18 05:04 LLE: splint c/d/i; able to wiggle toes Assessment: s/p ORIF left ankle, POD#1 Plan: 1) PT/OT- NWB LLE 2) ancef for 24 hours 3) Lovenox subq QD 4) patient may require inpatient rehab bc she has no-one at home to help and she says she will not give herself Lovenox injections. Will await PT eval today.
[2018-11-19] MEDS: Docusate CAP* 100 MG PO SCH ×3 (09:10→20:12)
[2018-11-19] MEDS: Magnesium Hydroxide LIQ* 30 ML UDC PO SCH ×3 (09:10→20:12)
[2018-11-19] MEDS: Losartan TAB* 25 MG PO SCH (09:11)
[2018-11-19] MEDS: Carvedilol TAB* 25 MG PO SCH ×3 (09:11→20:12)
[2018-11-19] MEDS: Hydrochlorothiazide TAB* 25 MG PO SCH (09:11)
[2018-11-19] MEDS: oxyCODONE/Acetamin 5/325 MG* TAB PO PRN ×3 (09:12→20:12)
[2018-11-19] MEDS: amLODIPine TAB* 5 MG PO SCH (12:08)
--- NOTE | 2018-11-20 03:43 | OP ---
DATE OF OPERATION: 11/18/18 - ROOM #333 DATE OF : 43 SURGEON: Hesham Hickey MD AUTOPSY ASSISTANT: MOI Roblero. A physician orthopedic physician assistant was required for the length of the procedure for assistance with patient positioning, retraction, and closure. ANESTHESIOLOGIST: Dr. Hiram Siddiqui. ANESTHESIA: General anesthesia. PRE-OP DIAGNOSES: 1. Left ankle trimalleolar fracture dislocation. 2. Status post prior external fixation, left ankle. POST-OP DIAGNOSES: 1. Left ankle trimalleolar fracture dislocation. 2. Status post prior external fixation, left ankle. OPERATIVE PROCEDURE: 1. Open reduction and internal fixation, left ankle trimalleolar fracture dislocation, including fixation of the posterior malleolus with a plate. 2. Removal of external fixator, left ankle. IV FLUIDS: 1300 cc of crystalloid. ANTIBIOTICS: Ancef 2 g IV. PATIENT POSITIONING: Prone. TOURNIQUET TIME: 152 minutes at 300 mmHg, left thigh tourniquet. Note that the tourniquet was elevated for approximately 120 minutes. It was then dropped for more than 15 minutes before being reelevated for approximately 30 minutes. [id number] TIME: 181 minutes. C-ARM EXPOSURE: 53.95 seconds. Exposure 0.0349. SPECIMEN: Components of external fixator were removed from the patient's ankle. IMPLANTS: On the posterior malleolus was placed a 6-hole 1/3 tubular plate. This was flattened. Through this plate, I placed two fully threaded 3.5 mm screws and two partially threaded cancellous 4.0 mm screws. On the lateral malleolus was placed a 1/3 tubular plate, 6-hole, with 5 screws through it. These screws were a combination of 4.0 mm cancellous, 3.5 mm nonlocking and locking. One of these screws was placed through the plate, but also across the fracture line itself. On the medial malleolus was placed a 4.0 mm partially threaded cannulated screw with washer as well as 1.6 mm K-wire bent and impacted. COMPLICATIONS: None. ESTIMATED BLOOD LOSS: Minimal. 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 The patient was brought to our hospital. After spending some time deciding at which hospital she wanted to receive care, she decided [place] [facility] Relocation of her ankle dislocation was unsuccessful in the emergency room by ER staff and then, after an ankle joint anesthetic block, by me. I therefore took the patient to the operating room that night. The patient was too swollen for open reduction and internal fixation and so I placed an external fixator after relocating the patient's ankle in the operating room. The patient has been an inpatient since. She has been strictly elevating that left lower extremity, doing a terrific job with that, under 4 to 5 pillows. She has also been icing that ankle around the clock. The patient has had wrinkles for the past several days with swelling significantly reduced. The patient did form a blister medially, but it was proximal and posterior to the planned incision line. I therefore, decided to proceed with surgery, definitive , open reduction and internal fixation. I spoke with the patient again about the main concerns with the surgery type of this, infection, and wound breakdown. However, I spoke about the full list of risk and potential complications including bleeding, infection, nerve or blood vessel injury, tendon injury, ankle pain, stiffness, arthritis, need for removal of fixation, wound breakdown, infection. The patient opted for surgery. The alternative to surgery today was placement in a rehabilitation facility as the patient was unable to go home. DESCRIPTION OF PROCEDURE: On the floor, I had the patient sign a written consent. Operative extremity was marked in the preoperative holding. The patient was taken to preoperative holding and then taken to the operating room. The patient was placed supine, sedated and intubated, I performed an abbreviated time-out. Next, I removed the external fixator. All components were collected to be sent for processing. The patient was flipped over to the prone position on the operating room table. OR table was well padded. Neck was in a position of comfort. Chest rolls were placed appropriately padding the chest down to the ASIS of the pelvis bilaterally. Axillae were free bilaterally. No significant pressure points. Foot was off the end of the table allowing for location of ankle joint. The tourniquet was placed around the left thigh. Left lower extremity was prepped and draped. Pre-prep involved taking a brush to the small blister about the medial ankle, unroofing it so that no colonization within it could predispose to a wound infection. Ioban was placed over the skin incisions remaining from the prior ex-fix pin sites. Ioban was placed over the medial ankle skin blister site. Surgical time-out performed. Esmarch was applied and tourniquet was elevated to 300 mmHg. I made a standard posterolateral approach skin incision. I dissected down to the posterior tibia. Identified fracture. The fracture had more of posteromedial apex than a straight posterior apex. I cleaned out the fracture site with curette, rongeur, irrigation. I reduced fracture and placed 2 K wires from posterior to anterior. I took a 1/3 tubular plate and flattened it to apply it to the posterior malleolus. I placed the plate overlying bone and used C-arm to confirm excellent reduction of bone and adequate plate position. X-rays, visual inspection, and palpation showed anatomic reduction of the posterior malleolus. I filled this plate with 4 screws. 2 were fully threaded proximal to the fracture line and 2 were partially threaded distal to the fracture line. This plate was acting in a buttress mode, although not in complete capacity given the apex was more posteromedial than posterior. However, the 2 distal screws through the plate were essentially lag screws across the fracture line and the plate was acting in some neutralization as well. I had hoped to use the locking screws though this plate, but flattening of the plate prevented good engagement of the guide into the screw holes. Bone looked excellently reduced all along the fracture line posteriorly from posterolateral to posteromedial. Irrigation. I assessed the soft tissues. No significant swelling had occurred, so I moved to the lateral malleolus. Distal fibula fracture was cleaned out with curette, rongeur, irrigation. I attempted placement of a lag screw across the fracture site, but the obliquity of the fracture did not allow this. I therefore, manually reduced the bone and placed 1/3 tubular plate over it, holding reduction with clamp and fingers while I placed one screw proximal and distal, nonlocking. I then filled the plate with locking screws and then 1 nonlocking screw that was directly across the fracture line through the plate. Screws through the plate were 4.0 cancellous nonlocking, 3.5 mm locking, 3.5 mm nonlocking. Anatomic reduction of the fibula. Irrigation. I closed fascial layers over both the lateral malleolus and the posterior malleolus. I did this specifically to prevent any issue with infection postoperatively. I did this with [id number] stitches using Vicryl 2.0 suture. I then closed the subcutaneous tissue of this incision with buried simple stitches using Vicryl 3.0 suture. Closure of the skin with javed. I reassessed the ankle for swelling. It still wrinkled medial and lateral. I therefore, moved to the medial side. I internally rotated the lower leg. I mapped out my skin incision. I made my medial skin incision, standard. I dissected down to the medial malleolus. I was surprised to see step off proximal to the medial malleolus fracture site. This step-off was of several millimeters and was in the coronal plane with the more posterior component of the tibia displaced more medial than the more anterior fragment. It was unclear what the significant of this was. This represented either some comminution from the tibia fracturing or possibly some medial translation of the more posterior fragment of the large posterior malleolus fragment. The reduction posteriorly earlier in the case had appeared to be anatomic visually and by radiograph. I considered re-opening the posterolateral incision to try to figure out exactly how there was this step- off medially. I decided that this would not be a good idea in the context of standard concerns about soft tissue management in a case like this. Extending the medial incision more proximally didn't seem collazo given that it would have gone through the prior skin blister site. I addressed the very small medial malleolus avulsion fracture fragment. I debrided the fracture site with curette, rongeur, and irrigation. I keyed it in anteriorly looking at the shoulder of the medial malleolus. I placed several K wires. This clearly not big enough for 2 screws. I therefore, placed 1 cannulated 4.0 mm partially threaded screw with a washer more anteriorly in the fragment. More posteriorly in the fragment, I placed a 1.6 mm K wire. To adjust the position of this, I moved it slightly more proximal to avoid the posterior tibial tendon. I bent the tip of this K wire and impacted it into bone. Irrigation. Again this had step off. It was several millimeters. Fracture had a period anatomic from posterior by visualization and x-rays of the joint itself had looked excellent throughout the case. Closure of the medial wound with buried simple stitches using Vicryl 3.0 suture in the subcutaneous tissue and javed of the skin. Adaptic was placed over the blister. Xeroform over the skin incisions as well as the external fixator skin sites in the foot and lower leg. 4x4s, sterile Webril, plaster splint with a posterior slab and the sugar-tong. Overwrapped with Yeyo bandage. The patient was converted into supine position, awakened and extubated. DISPOSITION: The patient was readmitted to my service. Given heightened awareness of concerns of infection or wound breakdown with the patient of this age in this high energy injury, I told the patient I wanted to keep this ankle again elevated at least 4 days on 4 to 5 pillows. She will have antibiotics q.8 hours up to 48 hours or until she heals if that is less than 48 hours. The patient will have pain control as needed with IV and oral narcotics. I suspect I will have her follow up in 1 week for a wound check and then I will remove her javed at 3 weeks at a separate clinic visit. We will watch her wounds or skin incision sites carefully. [id number]/[facility] #: [id number] TOMMIE
[2018-11-20] MEDS: Acetaminophen TAB* 325 MG PO SCH ×3 (03:48→11:32)
[2018-11-20] MEDS: ceFAZolin 1 GM* X 3 DOSES POST-OP Q8H (AddVan) IVPB SCH ×4 (04:55→13:53)
[2018-11-20] MEDS: oxyCODONE/Acetamin 5/325 MG* TAB PO PRN (06:05)
[2018-11-20] MEDS: Levothyroxine TAB* 88 MCG TAB PO SCH (06:06)
--- NOTE | 2018-11-20 08:18 | PN ---
Progress Note - Progress Note Date of Service: 11/20/18 SOAP: Subjective: resting comfortably in bed, pain well controlled, no complaints Objective: Vital Signs Temp Pulse Resp BP Pulse Ox 98.7 F 71 19 113/52 97 11/20/18 07:10 11/20/18 07:10 11/20/18 07:26 11/20/18 07:10 11/20/18 07:26 Laboratory Last Values Hgb 10.4 g/dL (12.0-16.0) L 11/19/18 04:48 Hct 30 % (35-47) L 11/19/18 04:48 Plt Count 224 10^3/uL (150-450) 11/14/18 06:14 MPV 8.7 fL (7.4-10.4) 11/14/18 06:14 Sodium 137 mmol/L (135-145) 11/18/18 05:04 Potassium 4.1 mmol/L (3.5-5.0) 11/18/18 05:04 Chloride 101 mmol/L (101-111) 11/18/18 05:04 Carbon Dioxide 30 mmol/L (22-32) 11/18/18 05:04 Anion Gap 6 mmol/L (2-11) 11/18/18 05:04 BUN 18 mg/dL (6-24) 11/18/18 05:04 Creatinine 0.88 mg/dL (0.51-0.95) 11/18/18 05:04 Est GFR ( Amer) 76.0 (>60) 11/18/18 05:04 Est GFR (Non-Af Amer) 62.8 (>60) 11/18/18 05:04 BUN/Creatinine Ratio 20.5 (8-20) H 11/18/18 05:04 Glucose 105 mg/dL (70-100) H 11/18/18 05:04 Calcium 9.5 mg/dL (8.6-10.3) 11/18/18 05:04 incision: c/d; splint intact Assessment: s/p ORIF left ankle Plan: 1) PT/OT- NWB LLE 2) Lovenox today before DC; home on ASA 325mg BID X 4 weeks 3) Follow-up with Dr. Hickey next or
[2018-11-20] MEDS: Losartan TAB* 25 MG PO SCH (08:47)
[2018-11-20] MEDS: Carvedilol TAB* 25 MG PO SCH (08:47)
[2018-11-20] MEDS: Hydrochlorothiazide TAB* 25 MG PO SCH (08:47)
[2018-11-20] MEDS: Docusate CAP* 100 MG PO SCH (08:48)
[2018-11-20] MEDS: Magnesium Hydroxide LIQ* 30 ML UDC PO SCH (08:49)
[2018-11-20 11:50] VITALS: BP 120/50
[2018-11-20] MEDS ORDERED: Enoxaparin(*) 30 MG/0.3 ML SYR SUBCUT SCH (12:00)
[2018-11-20] MEDS: amLODIPine TAB* 5 MG PO SCH (12:57)
--- NOTE | 2018-11-23 03:43 | DS ---
DISCHARGE SUMMARY: DATE OF ADMISSION: 11/14/18 DATE OF DISCHARGE: 11/20/18 ATTENDING PROVIDER: Dr. Hickey * (DICTATED BY MOI HAYES) HISTORY OF PRESENT ILLNESS: Ms. Lino is a 73-year-old female who injured her left ankle on 11/13/18 while hiking. She was admitted to the hospital and diagnosed with a left ankle fracture. HOSPITAL COURSE: She was admitted to the hospital on 11/13/18 and underwent a placement of an external fixation of her left ankle for a trimalleolar fracture. She was kept nonweightbearing and placed on Lovenox for DVT prophylaxis. She remained in the external fixator until 11/18/18. She was taken back to the operating room where the external fixator was removed and she underwent an ORIF of her left ankle. She was placed into a splint. She was again kept nonweightbearing and Lovenox was restarted on postoperative day 2. On postop day 1, her H and H was 10 and 30, her vital signs were stable and she was able to ambulate with a walker with the assistance of physical therapy, not putting any weight on her ankle. At the time of discharge, she was afebrile and her vital signs were stable. PHYSICAL EXAM UPON DISCHARGE: She was afebrile. Vital signs were stable. Her splint was clean and intact. She is able to wiggle her toes. She has full range of motion of her left knee. DISCHARGE MEDICATIONS: 1. Norvasc 5 mg a day. 2. Coreg 25 mg twice a day. 3. Colace 100 mg 1 tab every 8 hours as needed for constipation. 4. Aspirin 325 one tab twice a day for 4 weeks. 5. Levothyroxine 88 mcg a day. 6. Cozaar 100 mg daily. 7. Percocet 5/325 1 to 2 tabs every 4 to 6 hours with an MDD of 10 per day. DISCHARGE DISPOSITION: She was discharged to home in stable condition. DISCHARGE INSTRUCTIONS: She was discharged to home. She will remain nonweightbearing in the left lower extremity. She will take aspirin 325 twice a day for 4 weeks for DVT prophylaxis. She was given Percocet for pain and Colace for constipation. Dr. Thomas would like to see her in his clinic either next Friday or to remove the splint and transition her to a cast and we have asked her call our office to make that appointment with Dr. Thomas and the phone number was provided. She will call her office over the weekend for any questions or concerns. MOI HAYES [id number]/CPS #: [id number] [email or web address]
== END 2018-11-20 14:00 | disposition home or self-care (01) | DRG 313 ==
LOC: ED 12:53 → OR 11-14 00:31 → SSU 11-14 01:13
PROVIDERS: ADMIT Physician Assistant Surgical; ATTEND Orthopaedic Surgery
PROC: 0QSH35Z Reposition Left Tibia with External Fixation Device, Percutaneous Approach (ICD-10-PCS; principal; 2018-11-13 23:45)
PROC: 0SPG05Z Removal of External Fixation Device from Left Ankle Joint, Open Approach (ICD-10-PCS; 2018-11-18)
PROC: 0QSH04Z Reposition Left Tibia with Internal Fixation Device, Open Approach (ICD-10-PCS; 2018-11-18 16:00)
DX: S82.852A Displaced trimalleolar fracture of left lower leg, initial encounter for closed fracture (principal); I10 Essential (primary) hypertension; E03.9 Hypothyroidism, unspecified; W01.0XXA Fall on same level from slipping, tripping and stumbling without subsequent striking against object, initial encounter; M51.26 Other intervertebral disc displacement, lumbar region; Z88.2 Allergy status to sulfonamides; Z90.710 Acquired absence of both cervix and uterus; Z82.49 Family history of ischemic heart disease and other diseases of the circulatory system; Y92.009 Unspecified place in unspecified non-institutional (private) residence as the place of occurrence of the external cause
CPT/HCPCS: 36415; 76000; 80048; 82565; 85014; 85018; 85049; 88300; 93005; 99285; A9270-GY; C1713; C1776; G8978-GP-CI; G8978-GP-CJ; G8979-GP-CI; G8980-GP-CI; G8987-GO-CI; G8988-GO-CI; G8989-GO-CI; J0690; J1100; J1650; J1885; J2250; J2270; J2405; J2704; J2710; J3010; J3360; J3490; J8540